=== PATIENT | male | born 1925 | race Caucasian/White ===

== ENCOUNTER 2017-04-06 12:49 | Inpatient (IN) | payer MEDICARE ==
[~2017-04-06] VITALS: Ht 167.6 cm; Wt 54.4 kg
--- NOTE | 2017-04-06 13:55 | NUR ---
BACK FROM [facility]
[2017-04-06 14:11] LABS: BASOPHILS % (AUTO) 0.5 % (0.0-2.0); EOSINOPHILS # (AUTO) 0.1 /CMM (0.0-0.7); EOSINOPHILS % (AUTO) 1.8 % (0.0-6.0); HEMATOCRIT 35 % (39-51); HEMOGLOBIN 11.2 g/dL (13.5-17.5); LYMPHOCYTES # (AUTO) 1.5 /CMM (0.8-4.8); LYMPHOCYTES % (AUTO) 24.5 % (20.0-44.0); MEAN CORPUSCULAR HEMOGLOBIN 28 PG (26.0-33.0); MEAN CORPUSCULAR HGB CONC 32 g/dl (31.0-36.0); MEAN CORPUSCULAR VOLUME 87 fL (80-96); MONOCYTES # (AUTO) 0.5 /CMM (0.1-1.30); MONOCYTES % (AUTO) 8.3 % (2.0-12.0); NEUTROPHILS # (AUTO) 3.8 /CMM (1.8-8.9); NEUTROPHILS % (AUTO) 64.9 % (43.0-81.0); PLATELET COUNT (AUTO) 138 /CMM (150-450); RDW COEFFICIENT OF VARIATION 15.7 (11.5-15.0); RED BLOOD CELL COUNT(AUTO) 4.02 MIL/uL (4.5-6.0); WHITE BLOOD COUNT (AUTO) 5.9 K/uL (4.3-11.0)
[2017-04-06 14:20] LABS: CALCIUM, SERUM 9.2 mg/dL (8.5-10.1); CARBON DIOXIDE 25 mmol/L (21-32); CHLORIDE 110 mmol/L (98-107); CREATININE 4.3 mg/dL (0.6-1.3); GLUCOSE 88 mg/dL (74-106); POTASSIUM 5.2 mmol/L (3.5-5.1); SODIUM SERUM 144 mmol/L (136-145); UREA NITROGEN, BLOOD 70 mg/dL (7-18)
--- NOTE | 2017-04-06 15:27 | NUR ---
CALLED [employer] SOCIAL MEDIA MANAGER WAS PAGED.
[2017-04-06] MEDS ORDERED: ATOR10TA PO (15:43)
[2017-04-06] MEDS ORDERED: AMLO2.5T PO (15:43)
[2017-04-06] MEDS ORDERED: FUROSEMIDE 20 MG/2 ML VIAL ONE (16:12)
[2017-04-06] MEDS ORDERED: ONDANSETRON HCL/PF 4 MG/2 ML VIAL IVP PRN (16:30)
[2017-04-06] MEDS ORDERED: FUROSEMIDE 20 MG/2 ML VIAL IV ONE (16:30)
[2017-04-06] MEDS ORDERED: ACETAMINOPHEN 325 MG TABLET PO PRN (16:30)
[2017-04-06 16:31] LABS: INR 1.01 (0.87-1.13); PROTHROMBIN TIME 10.5 SECS (9.5-12.7)
[2017-04-06 17:45] VITALS: BP 142/89
--- NOTE | 2017-04-06 17:45 | NUR ---
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 PATIENT IS COOPERATIVE, VS TAKEN AND RECORDED. LEADS APPLIED FOR TELE MONITOR. PATIENT IS AMBULATORY WITH ASSIST. SKIN INTACT, NOTED ABRASION IN SCALP AND RIGHT BUTTOCK BRUISE. IVC IN RIGHT AC G20 PATENT AND INTACT, FLUSHES WELL. MADE COMFORTABLE IN BED. PLACE CALL LIGHT WITHIN REACH. BED LOW AND LOCKED, SIDE RAILS UP X2. WILL CONT TO MONITOR.
[2017-04-06] MEDS: IV NS 0.9% 1,000 ML IV PRN (18:10)
[2017-04-06 18:45] VITALS: BP 142/89
--- NOTE | 2017-04-06 19:30 | NUR ---
WELDING SYSTEMS AND EQUIPMENT REPAIRER CLOSING NOTES PATIENT IS A/O X3. ON TELE MONITOR SINUS RHYTHM WITH BBB HR 78, DENIES ANY DISCOMFORT. PATIENT IS SEEN BY DR. WORRELL TODAY, MD SPOKE TO THE PATIENT. PATIENT TO HAVE CAROTID DUPLEX, ARTERIAL DUPLER LE AND ABDOMINAL SONO ORDERED, WILL ENDORSE TO MEMBERSHIP DIRECTOR RN FOR MICHELE.
--- NOTE | 2017-04-06 20:00 | NUR ---
Patient alert and orientated speech clear ambulated with one nurse to the bathroom. Enjoys conversation. Noted the abrasion on back near top of th head scabbing old driend blood. Good eye contact speech clear
--- NOTE | 2017-04-06 20:15 | NUR ---
Spoke to MD Puentes regarding the elevated Blood pressure 189/89Hr 76 ordered medication given Addendum: 04/07/17 at 0312 by JH FISCHER RN spoke to Md puentes about the blood pressure at 1 am orders given
[2017-04-06] MEDS: ACETYLCYSTEINE 20% ORAL SOLN 6,000 MG/30 ML VIAL PO SCH (21:22)
[2017-04-06] MEDS: ATORVASTATIN 10 MG TABLET PO SCH (21:23)
[2017-04-07 01:22] VITALS: BP 142/89
[2017-04-07 01:23] VITALS: BP 184/89
[2017-04-07] MEDS ORDERED: CLONIDINE HCL 0.1 MG TABLET PO PRN (01:30)
[2017-04-07] MEDS ORDERED: CLONIDINE HCL 0.1 MG TABLET ONE (01:32)
[2017-04-07 03:58] LABS: BASOPHILS % (AUTO) 0.4 % (0.0-2.0); EOSINOPHILS # (AUTO) 0.2 /CMM (0.0-0.7); EOSINOPHILS % (AUTO) 2.5 % (0.0-6.0); HEMATOCRIT 31 % (39-51); LYMPHOCYTES # (AUTO) 1.1 /CMM (0.8-4.8); LYMPHOCYTES % (AUTO) 14.4 % (20.0-44.0); MEAN CORPUSCULAR HEMOGLOBIN 28 PG (26.0-33.0); MEAN CORPUSCULAR HGB CONC 32 g/dl (31.0-36.0); MEAN CORPUSCULAR VOLUME 87 fL (80-96); MONOCYTES # (AUTO) 0.5 /CMM (0.1-1.30); MONOCYTES % (AUTO) 6.5 % (2.0-12.0); NEUTROPHILS # (AUTO) 5.9 /CMM (1.8-8.9); NEUTROPHILS % (AUTO) 76.2 % (43.0-81.0); PLATELET COUNT (AUTO) 131 /CMM (150-450); RDW COEFFICIENT OF VARIATION 16.7 (11.5-15.0); RED BLOOD CELL COUNT(AUTO) 3.57 MIL/uL (4.5-6.0); WHITE BLOOD COUNT (AUTO) 7.7 K/uL (4.3-11.0)
[2017-04-07 04:00] VITALS: BP 121/57
[2017-04-07 04:11] LABS: CALCIUM, SERUM 8.4 mg/dL (8.5-10.1); CARBON DIOXIDE 24 mmol/L (21-32); CHLORIDE 110 mmol/L (98-107); CREATININE 4.3 mg/dL (0.6-1.3); GLUCOSE 103 mg/dL (74-106); PHOSPHORUS 2.9 mg/dL (2.5-4.9); POTASSIUM 5.1 mmol/L (3.5-5.1); SODIUM SERUM 144 mmol/L (136-145); UREA NITROGEN, BLOOD 67 mg/dL (7-18)
--- NOTE | 2017-04-07 05:11 | NUR ---
Patient sleeping soundly at this time. Blood pressure at 011 was 189/89 Hr 79 after calling the MD Puentes and getting an order for Clonidine o.1 mg his blood pressure is121/79 on the monitor he is SR. He is not sure about taking any ordered medications dt he doesn't know the MD's. He remains alert and orientated
--- NOTE | 2017-04-07 06:52 | NUR ---
u/s THAT WAS DONE LAST NIGHT 04/06 OF THE ABD. RESULTS CAME IN FAXED TO md Woodward @ [phone] as ordered, dopple to be done today 04/07
--- NOTE | 2017-04-07 07:49 | NUR ---
ASSISTANT ASSOCIATE PROFESSOR: INITIAL NOTE RECEIVED PT A/OX4. ON TELE MONITOR SR. NO DISTRESS NOTED. NO SOB NOTED. NO PAIN NOTED. BRUISES ON RT BUTTOCKS, SMALL ABRASION ON BACK OF HEAD SCAB. RT AC RUNNING NS AT 80ML/HR. SITE CLEAR AND PATENT. NO REDNESS NOTED. NO BLEEDING NOTED. RESTING COMFORTABLY IN BED. CALL LIGHT WITHIN REACH.
[2017-04-07 08:00] VITALS: BP 139/70
[2017-04-07] MEDS: PANTOPRAZOLE 40 MG TABLET.DR PO SCH (08:21)
[2017-04-07] MEDS: AMLODIPINE BESYLATE 2.5 MG TABLET PO SCH (08:21)
[2017-04-07] MEDS: CARVEDILOL 12.5 MG TABLET PO SCH ×2 (08:21→21:38)
[2017-04-07] MEDS: ACETYLCYSTEINE 20% ORAL SOLN 6,000 MG/30 ML VIAL PO SCH ×2 (09:17→21:37)
--- NOTE | 2017-04-07 11:00 | NUR ---
MD SPIVEY AWARE OF BRUISE TO R BUTTOCKS AND HIP OF PT DUE TO STATUS POST FALL. PT EVAL DONE. ABLE TO AMBULATE WITH OUT PAIN. MOVED RIGHT LEG PASSIVE RANGE OF MOTION AND ACTIVE RANGE OF MOTION. NO PAIN NOTED. NO RESISTANCE NOTED.
--- NOTE | 2017-04-07 11:41 | NUR ---
WOUND CARE CONSULT: PT PRESENTS WITH BRUISING AND DRY ABRASION TO BACK OF HEAD AND BRUISE WITH SWELLING TO RT BUTTOCK, PRESENT ON ADMISSION. 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 RECOMMENDATIONS MADE FOR SKIN PROTECTION AND CARE. DISCUSSED WITH NURSING STAFF. CURRENT MARGARITA SCORE IS 16. WILL SEE PRN. VAZQUEZ IN AGREEMENT WITH PLAN OF CARE. Addendum: 04/07/17 at 1143 by MIKA TINSLEY WNDNU Amended: Links added.
[2017-04-07] MEDS: IV NS 0.9% 1,000 ML IV PRN (14:12)
[2017-04-07 16:00] VITALS: BP 127/63
--- NOTE | 2017-04-07 18:47 | NUR ---
MASONRY INSTALLER: CLOSING NOTE PT A/OX3. NO DISTRESS NOTED. NO SOB NOTED. NO PAIN NOTED. TOOK ALL MEDICATIONS ON TIME. NO ADVERSE REACTIONS NOTED. ON TELE MONITOR SR AT 62 BPM. AMBULATORY WITH MODERATE ASSIST. WOUND CONSULT DONE. RT AC #22 RUNNING NS AT 80ML/HR. SITE CLEAR AND PATENT. NO REDNESS OR BLEEDING NOTED. NPO AFTER MIDNIGHT EXCEPT MEDS DUE TO STRESS TEST SCHDULED FOR 04/08/17. CONSENT SIGNED AND PLACED IN CHART. RESTING COMFORTABLY IN BED. CALL LIGHT WITHIN REACH.
--- NOTE | 2017-04-07 19:30 | NUR ---
REFUELING RAMP SUPERVISOR NOTES RECEIVED ON BED EATING HIS DINNER FOOD SLOWLY.NEGATIVE FOR ASPIRATION.PRESENT IVF INFUSING WELL VIA LEFT AC,SITE PATENT.ALERT,X3,ABLE TO VERBALIZED NEEDS.SR WITH BBB 56 ON TELE MONITOR .FALL PRECAUTION OBSERVED,BED ON LOWEST POSITION AND LOCK,CALL LIGHT IN REACH,NEEDS ANTICIPATED.
[2017-04-07 20:00] VITALS: BP_SYST 154; BP_SYST 157; BP_DIAS 75
--- NOTE | 2017-04-07 21:00 | NUR ---
BREAKFAST SERVER NOTE DUE PO MEDS ADMINISTERED SCHEDULED,TAKEN WELL
[2017-04-07] MEDS: ATORVASTATIN 10 MG TABLET PO SCH (21:37)
[2017-04-08] VITALS: BP 125/61
--- NOTE | 2017-04-08 01:00 | NUR ---
RECLAMATION WORKER NOTES NO SIGNIFICANT CHANGE IN STATUS,KEPT NPO EXCEPT MEDS,GOING FOR STRESS TEST TODAY.IVF INFUSING,SITE PATENT RIGHT AC.SLEPT WELL.STILL NEEDS REGULAR RE ORIENTATION. NO FALL,NO INJURY.CALL LIGHT IN REACH,NEEDS ATTENDED.
[2017-04-08 04:00] VITALS: BP 156/72
[2017-04-08] MEDS: IV NS 0.9% 1,000 ML IV PRN (05:20)
[2017-04-08 06:54] LABS: ALANINE AMINOTRANSFERASE 13 U/L (12-78); ALBUMIN 2.8 g/dL (3.4-5.0); ALKALINE PHOSPHATASE 38 U/L (46-116); ASPARTATE AMINOTRANSFERASE 11 U/L (15-37); BILIRUBIN,TOTAL 0.3 mg/dL (0.2-1.0); CALCIUM, SERUM 8.3 mg/dL (8.5-10.1); CARBON DIOXIDE 24 mmol/L (21-32); CHLORIDE 110 mmol/L (98-107); CREATININE 4.3 mg/dL (0.6-1.3); GLUCOSE 93 mg/dL (74-106); MAGNESIUM 2.1 mg/dL (1.8-2.4); PHOSPHORUS 3.4 mg/dL (2.5-4.9); POTASSIUM 5.4 mmol/L (3.5-5.1); SODIUM SERUM 143 mmol/L (136-145); TOTAL PROTEIN, SERUM 6.1 g/dL (6.4-8.2); UREA NITROGEN, BLOOD 73 mg/dL (7-18)
[2017-04-08 07:20] LABS: BASOPHILS % (AUTO) 0.1 % (0.0-2.0); EOSINOPHILS # (AUTO) 0.4 /CMM (0.0-0.7); EOSINOPHILS % (AUTO) 6.2 % (0.0-6.0); HEMATOCRIT 31 % (39-51); LYMPHOCYTES # (AUTO) 1.6 /CMM (0.8-4.8); LYMPHOCYTES % (AUTO) 27.4 % (20.0-44.0); MEAN CORPUSCULAR HEMOGLOBIN 28 PG (26.0-33.0); MEAN CORPUSCULAR HGB CONC 32 g/dl (31.0-36.0); MEAN CORPUSCULAR VOLUME 88 fL (80-96); MONOCYTES # (AUTO) 0.6 /CMM (0.1-1.30); MONOCYTES % (AUTO) 10.6 % (2.0-12.0); NEUTROPHILS # (AUTO) 3.2 /CMM (1.8-8.9); NEUTROPHILS % (AUTO) 55.7 % (43.0-81.0); PLATELET COUNT (AUTO) 127 /CMM (150-450); RDW COEFFICIENT OF VARIATION 17.1 (11.5-15.0); RED BLOOD CELL COUNT(AUTO) 3.52 MIL/uL (4.5-6.0); WHITE BLOOD COUNT (AUTO) 5.7 K/uL (4.3-11.0)
--- NOTE | 2017-04-08 07:30 | NUR ---
RN OPENING NOTES RECEIVED PATIENT IN BED RESTING. NO ACUTE DISTRESS, NO SOB NOTED. DENIES PAIN OR DISCOMFORT. IV SITE INTACT AND PATENT. KEPT PATIENT SAFE AND COMFORTABLE. BED IN LOW, LOCKED POSITION, SIDERAILS UPX2. CALL LIGHT IN REACH. WILL CONTINUE TO MONITOR ACCORDINGLY.
[2017-04-08 08:00] VITALS: BP_SYST 172; BP_SYST 180; BP_DIAS 80; BP_DIAS 83
--- NOTE | 2017-04-08 09:00 | NUR ---
RN NOTES PATIENT WENT TO STRESS TEST, PICKED UP BY FOUNDER CEO & PRESIDENT
[2017-04-08] MEDS ORDERED: CARV12.52 PO (09:56)
[2017-04-08] MEDS ORDERED: ASPI325T2 PO (09:56)
[2017-04-08] MEDS ORDERED: REGADENOSON 0.4 MG/5 ML DISP.SYRIN IVP ONE (10:00)
[2017-04-08] MEDS: ACETYLCYSTEINE 20% ORAL SOLN 6,000 MG/30 ML VIAL PO SCH (10:40)
[2017-04-08] MEDS: PANTOPRAZOLE 40 MG TABLET.DR PO SCH (10:43)
[2017-04-08] MEDS: AMLODIPINE BESYLATE 2.5 MG TABLET PO SCH (10:43)
[2017-04-08] MEDS: CARVEDILOL 12.5 MG TABLET PO SCH ×2 (10:44→21:10)
--- NOTE | 2017-04-08 10:44 | NUR ---
RN NOTES BP= 178/84, BP MEDS GIVEN ORDERED. WILL RECHECK BP. WILL CONTINUE TO MONITOR ACCORDINGLY.
--- NOTE | 2017-04-08 10:45 | NUR ---
RN NOTES PICKED UP BY RADIOLOGY FOR 2ND TEST.
--- NOTE | 2017-04-08 11:45 | NUR ---
RN NOTES PATIENT CAME BACK FROM RADIOLOGY. RECHECKED DC=627/80. WILL CONTINUE TO MONITOR ACCORDINGLY.
--- NOTE | 2017-04-08 13:50 | NUR ---
NM CARDIAC STRESS TEST WAS COMPLETED; TECH:RB
[2017-04-08 16:00] VITALS: BP 125/65
[2017-04-08] MEDS: BOOST PLUS FOOD-CHOCLATE 237 ML BOX PO SCH (17:00)
--- NOTE | 2017-04-08 19:10 | NUR ---
MS/PACKAGE CAR DRIVER; RECEIVED PT'S REPORTS FROM THE DAYS SHIFT RN FOR CONTINUITY OF CARE. AT THIS TIME PT IN BED AWAKE, ALERT AND ORIENTED, COHERENTLY VERBALLY RESPONSIVE. BREATHING NON LABORED. IVF ON PROGRESS ON LAC. BED ON LOWER POSITION AND LOCKED FOR SAFETY. SIDE RAILS ARE UP FOR SAFETY. CONTINUE TO MONITOR CALL LIGHT WITHIN REACH.
--- NOTE | 2017-04-08 19:30 | NUR ---
RN CLOSING NOTES NO SIGNIFICANT CHANGE IN PATIENT'S CONDITION. PATIENT IN BED RESTING, RESPONSIVE. NO ACUTE DISTRESS, NO SOB NOTED. ALL NEEDS ATTENDED AND PROVIDED. KEPT PATIENT SAFE AND COMFORTABLE. BED IN LOW, LOCKED POSITION, SIDERAILS UPX2. CALL LIGHT IN REACH. ENODRSED TO NIGHT RN FOR MICHELE.
[2017-04-08 20:00] VITALS: BP 130/65
[2017-04-08] MEDS: ATORVASTATIN 10 MG TABLET PO SCH (22:03)
[2017-04-09] MEDS: IV NS 0.9% 1,000 ML IV PRN (05:12)
--- NOTE | 2017-04-09 05:45 | NUR ---
MS/ X RAY EXAMINER OF AIRCRAFT; INCONTINENT OF URINE. MORNING CARE DONE BY THE CLINICAL ASSISTANT. HAS BEEN TURNED AND REPOSITIONED. DENIES ANY PAIN. IVF ON PROGRESS. CONTINUE TO MONITOR. CALL LIGHT WITHIN REACH. WILL ENDORSE TO THE DAY SHIFT NURSE.
--- NOTE | 2017-04-09 06:24 | NUR ---
MS/DOORPERSON; PT IN BED RESTING. IVF ON PROGRESS. BED ON LOWER POSITION AND LOCKED FOR SAFETY. SIDE RAILS UPPER PART OF BED ARE UP FOR SAFETY. SLEPT FAIRLY LAST NIGHT. WILL ENDORSE TO THE DAY SHIFT NURSE FOR CONTINUITY OF CARE.
[2017-04-09 08:00] VITALS: BP 157/70
[2017-04-09] MEDS: PANTOPRAZOLE 40 MG TABLET.DR PO SCH (08:28)
[2017-04-09] MEDS: AMLODIPINE BESYLATE 2.5 MG TABLET PO SCH (08:29)
[2017-04-09] MEDS: CARVEDILOL 12.5 MG TABLET PO SCH (08:29)
[2017-04-09] MEDS: BOOST PLUS FOOD-CHOCLATE 237 ML BOX PO SCH (08:35)
[2017-04-09 10:22] LABS: CALCIUM, SERUM 8.6 mg/dL (8.5-10.1); CARBON DIOXIDE 23 mmol/L (21-32); CHLORIDE 111 mmol/L (98-107); CREATININE 4.3 mg/dL (0.6-1.3); GLUCOSE 109 mg/dL (74-106); POTASSIUM 5.3 mmol/L (3.5-5.1); SODIUM SERUM 143 mmol/L (136-145); UREA NITROGEN, BLOOD 73 mg/dL (7-18)
[2017-04-09 10:29] LABS: ALANINE AMINOTRANSFERASE 14 U/L (12-78); ALBUMIN 3.2 g/dL (3.4-5.0); ALKALINE PHOSPHATASE 46 U/L (46-116); ASPARTATE AMINOTRANSFERASE 10 U/L (15-37); BILIRUBIN,TOTAL 0.4 mg/dL (0.2-1.0)
--- NOTE | 2017-04-09 14:00 | NUR ---
RN NOTES PATIENT REPORTED THAT HE COULDN'T FIND HIS CELLPHONE, HE SAID IT WAS JUST IN THE BED ALL NIGHT. REPORTED TO BRIDAL CONSULTANT. STAFF LOOKED EVERYWHERE IN THE ROOM BUT COULDN'T FIND THE CELLPHONE. CELLPHONE NOTED ON BELONGINGS LIST FORM. CALLED [facility], NO CELLPHONE WAS FOUND. WILL CONTINUE TO LOOK FOR IT.
[2017-04-09 15:00] VITALS: BP 122/79
--- NOTE | 2017-04-09 15:20 | NUR ---
RETIREMENT ACTUARY NOTES DISCHARGED PATIENT IN STABLE CONDITION, PICKED UP BY LINING CEMENTER VIA AMBULANCE. DISCHARGE INSTRUCTIONS/TEACHING GIVEN TO PATIENT, VERBALIZED UNDERSTANDING. DISCHARGE PAPERWORK GIVEN TO LINING CEMENTER. REPORT GIVEN TO IVIS PASCAL FROM [facility]. DISCONTINUE IV, APPLIED PRESSURE, NO BLEEDING, NO COMPLICATIONS. ALL BELONGINGS GIVEN BACK TO PATIENT EXCEPT FOR HIS CELLPHONE, WHICH HE CLAIMED THAT WAS LOST, BELONGINGS FORM SIGNED BY PATIENT.
== END 2017-04-09 15:20 | DRG 74 ==
LOC: ER 12:50 → TELE 17:15 → MED 04-08 09:20
PROVIDERS: ADMIT Internal Medicine; ATTEND Internal Medicine
DX: G90.8 Other disorders of autonomic nervous system (principal); E87.5 Hyperkalemia; I12.0 Hypertensive chronic kidney disease with stage 5 chronic kidney disease or end stage renal disease; N18.5 Chronic kidney disease, stage 5; I65.21 Occlusion and stenosis of right carotid artery; S09.90XA Unspecified injury of head, initial encounter; D63.8 Anemia in other chronic diseases classified elsewhere; E78.5 Hyperlipidemia, unspecified; W10.1XXA Fall (on)(from) sidewalk curb, initial encounter; R29.6 Repeated falls; Y93.9 Activity, unspecified; Y92.009 Unspecified place in unspecified non-institutional (private) residence as the place of occurrence of the external cause
CPT/HCPCS: 36415; 70450-TC; 71010-TC; 72125-TC; 76700-TC; 80048-TC; 80053-TC; 83735-TC; 84100-TC; 84132-TC; 84484-TC; 85025-TC; 85730-TC; 93307-TC; 93880-TC; 97110-TC; 97116-TC; 97530-TC; A4606; A6402; A6403; A9502; J1940; J2785; J7030; Z7610